=== PATIENT | male | born 1950 | race Caucasian/White ===

== ENCOUNTER 2017-05-18 15:02 | Emergency (ER) | payer BC, MEDICARE ==
[2017-05-18] MEDS ORDERED: Ketorolac INJ* 30 MG/ML 1 ML VIAL IV ONE (15:56)
[2017-05-18] MEDS ORDERED: NS 0.9% 1000 ML* 1,000 ML IV ONE (15:56)
[2017-05-18 16:32] LABS: Hematocrit 44 % (42-52); Hemoglobin 14.7 g/dl (14.0-18.0); Mean Corpuscular HGB Conc 34 g/dl (31-36); Mean Corpuscular Hemoglobin 33 pg (27-31); Mean Corpuscular Volume 97 fL (80-94); Mean Platelet Volume 10 um3 (7.4-10.4); Red Cell Distribution Width 13 % (10.5-15); White Blood Count 8.8 10^3/ul (3.5-10.8)
[2017-05-18 16:48] LABS: Albumin 3.8 g/dL (3.2-5.2); BUN/Creatinine Ratio 15.8 (8-20); C Reactive Protein 5.01 mg/L (< 5.00); Calcium 8.8 mg/dL (8.6-10.3); EGFR African American 78.1 (>60); EGFR Non-African American 60.8 (>60); Globulin 3.2 g/dL (2-4); Potassium 3.9 mmol/L (3.5-5.0); Total Bilirubin 0.6 mg/dL (0.2-1.0)
--- NOTE | 2017-05-18 17:16 | RAD ---
INDICATION: LEFT lower quadrant pain now primarily LEFT flank pain. Multiple episodes of vomiting. COMPARISON: No relevant prior exams available on the [facility] for comparison. TECHNIQUE: Multidetector CT images were obtained from the lung bases to the ischial tuberosities. Evaluation of the viscera is limited without IV contrast. Multiplanar reformation. REPORT: Unremarkable visualized inferior thorax. Decreased density of the liver consistent with fatty infiltration with focal sparing at the gallbladder fossa and violeta hepatis. Distended gallbladder without CT abnormality. Negative for biliary dilatation. Unremarkable unenhanced pancreas and spleen. Negative for CT abnormality of the unopacified upper GI, small bowel, or appendix. Moderate colonic diverticulosis primarily at the sigmoid colon without findings of diverticulitis. Negative for ascites, free air, or hernias. Normal adrenal glands. Negative for RIGHT urolithiasis or hydronephrosis. Small water density cortical cyst at the midpole the RIGHT kidney. Unremarkable RIGHT ureter. 6 mm calyceal stone posterior midpole LEFT kidney. Negative for LEFT hydronephrosis. 1.5 cm cortical cyst mid to upper pole LEFT kidney. Unremarkable nondilated LEFT ureter and partially distended urinary bladder. Coarse calcifications at the prostate. Symmetric seminal vesicles. Negative for lymphadenopathy. Mild calcific plaque of normal diameter abdominal aorta and iliac arteries. Physiologic distention of the IVC. Polyarticular degenerative arthropathy. LEFT hemilumbarization of S1. 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 Degenerative spondylosis and posterior element osteoarthritis results in moderately severe L3-L4 and L4-L5 central canal stenosis. Less prominent stenosis at L5-S1. Degenerative spondylosis and facet joint osteoarthritis results in multilevel foraminal stenosis. IMPRESSION: 1. Normal appendix documented. 2. Moderate sigmoid diverticulosis without findings of diverticulitis. 3. Nonobstructing 6 mm calyceal stone posterior midpole LEFT kidney. Negative for hydronephrosis.
[2017-05-18 18:14] LABS: Urine Bacteria Absent (Absent); Urine Bilirubin Negative (Negative); Urine Glucose Negative (Negative); Urine Nitrite Negative (Negative)
[2017-05-18 18:38] VITALS: BP 160/82
--- NOTE | 2017-05-18 18:46 | ED ---
Riri Zhong Alfonso, scribed for Donald Boston MD on 05/18/17 at 1607 . Abdominal Pain/Male - HPI Summary HPI Summary: This patient is a 66 year old M presenting [facility] accompanied by with a chief complaint of LLQ and left flank pain since this morning. The CC is described as sharp with spasms. The patient rates the pain 4/10 in severity. Symptoms aggravated by palpation and alleviated by nothing. The patient reports nausea, vomiting (6 times), and low back pain. Pt reports two drinks of malt liquor and a greasy breakfast. He denies PMHx of renal calculi. He denies any PMHx. PSHx of tonsillectomy. FHx of gallstones in father. - History of Current Complaint Chief Complaint: EDFlankPain Stated Complaint: FLANK PAIN Time Seen by Provider: 05/18/17 15:56 Hx Obtained From: Patient Onset/Duration: Sudden Onset, Lasting Hours - This morning, Still Present Timing: Constant Severity Initially: Moderate Severity Currently: Moderate Pain Intensity: 4 Pain Scale Used: 0-10 Numeric Location: Discrete At: LLQ, Flank - L Character: Sharp, Other: - Spasm Aggravating Factor(s): Other: - palpation Alleviating Factor(s): Nothing Associated Signs And Symptoms: Positive: Other - The patient reports nausea, vomiting (6 times), and lower back pain. - Allergies/Home Medications Allergies/Adverse Reactions: Allergies Allergy/AdvReac Type Severity Reaction Status Date / Time No Known Allergies Allergy Verified 09/28/13 11:48 PMH/Surg Hx/FS Hx/Imm Hx Respiratory History: Reports: Hx Sleep Apnea - current CPAP user. GI History: Reports: Other GI Disorders - Negative renal calculi at 05/18/17 ED visit Musculoskeletal History: Reports: Hx Arthritis - osteo Sensory History: Denies: Hx Deafness Opthamlomology History: Denies: Hx Legally Blind - Surgical History Surgery Procedure, Year, and Place: 1964 tonsils, various dental surgeries ( teeth pulled) Infectious Disease History: No Infectious Disease History: Denies: Traveled Outside the [place] in Last 30 Days - Family History Known Family History: Positive: Other - Gallstones in father - Social History Alcohol Use: Weekly Substance Use Type: Reports: None Hx Tobacco Use: No Smoking Status (MU): Never Smoked Tobacco Review of Systems Positive: Abdominal Pain - LLQ and L flank, Vomiting - x6, Nausea Positive: Other - Positive low back pain All Other Systems Reviewed And Are Negative: Yes Physical Exam - Summary Physical Exam Summary: VITAL SIGNS: Reviewed. GENERAL: Patient is a well-developed and nourished male who is lying comfortable in the stretcher. Patient is not in any acute respiratory distress. HEAD AND FACE: Normocephalic and atraumatic. EYES: PERRLA, EOMI x 2, No injected conjunctiva. EARS: Hearing grossly intact. Ear canals and tympanic membranes are WNL. MOUTH: Oropharynx within normal limits. NECK: Supple, trachea is midline, no adenopathy, no JVD. CHEST: Symmetric, no tenderness at palpation LUNGS: Clear to auscultation bilaterally. No wheezing or crackles. CVS: RRR, S1 and S2 present, no murmurs or gallops appreciated. ABDOMEN: Soft. Left costovertebral angle. No signs of distention. Positive bowel sounds. No rebound no guarding, and no masses palpated. No abdominal bruit or pulsations. EXTREMITIES: FROM in all major joints, no edema, no cyanosis or clubbing. NEURO: Alert and oriented x 3. No acute neurological deficits. Speech is normal. SKIN: Dry and warm Triage Information Reviewed: Yes Vital Signs On Initial Exam: Initial Vitals Temp Pulse Resp BP Pulse Ox 97.9 F 67 20 172/83 971 05/18/17 15:05 05/18/17 15:05 05/18/17 15:05 05/18/17 15:05 05/18/17 15:05 Vital Signs Reviewed: Yes Diagnostics - Vital Signs Vital Signs Temp Pulse Resp BP Pulse Ox 05/18/17 15:58 98.2 F 72 16 164/84 99 05/18/17 15:05 97.9 F 67 20 172/83 971 - Laboratory Lab Results: Lab Results 05/18/17 05/18/17 05/18/17 Range/Units 16:23 16:23 17:45 WBC 8.8 (3.5-10.8) 10^3/ul RBC 4.50 (4.0-5.4) 10^6/ul Hgb 14.7 (14.0-18.0) g/dl Hct 44 (42-52) % MCV 97 H (80-94) fL MCH 33 H (27-31) pg MCHC 34 (31-36) g/dl RDW 13 (10.5-15) % Plt Count 148 L (150-450) 10^3/ul MPV 10 (7.4-10.4) um3 Neut % (Auto) 86.6 H (38-83) % Lymph % (Auto) 5.4 L (25-47) % [place] % (Auto) 6.8 (1-9) % Eos % (Auto) 0.9 (0-6) % Baso % (Auto) 0.3 (0-2) % Absolute Neuts (auto) 7.6 (1.5-7.7) 10^3/ul Absolute Lymphs (auto) 0.5 L (1.0-4.8) 10^3/ul Absolute Monos (auto) 0.6 (0-0.8) 10^3/ul Absolute Eos (auto) 0.1 (0-0.6) 10^3/ul Absolute Basos (auto) 0 (0-0.2) 10^3/ul Absolute Nucleated RBC 0 10^3/ul Nucleated RBC % 0 Sodium 139 (133-145) mmol/L Potassium 3.9 (3.5-5.0) mmol/L Chloride 107 (101-111) mmol/L Carbon Dioxide 24 (22-32) mmol/L Anion Gap 8 (2-11) mmol/L BUN 19 (6-24) mg/dL Creatinine 1.20 H (0.67-1.17) mg/dL Est GFR ( Amer) 78.1 (>60) Est GFR (Non-Af Amer) 60.8 (>60) BUN/Creatinine Ratio 15.8 (8-20) Glucose 104 H (70-100) mg/dL Calcium 8.8 (8.6-10.3) mg/dL Total Bilirubin 0.60 (0.2-1.0) mg/dL AST 17 (13-39) U/L ALT 19 (7-52) U/L Alkaline Phosphatase 78 (34-104) U/L C-Reactive Protein 5.01 H (< 5.00) mg/L Total Protein 7.0 (6.4-8.9) g/dL Albumin 3.8 (3.2-5.2) g/dL Globulin 3.2 (2-4) g/dL Albumin/Globulin Ratio 1.2 (1-3) Lipase 21 (11.0-82.0) U/L Urine Color Yellow Urine Appearance Clear Urine pH 6.0 (5-9) Ur Specific [place] 1.011 (1.010-1.030) Urine Protein Negative (Negative) Urine Ketones Trace H (Negative) Urine Blood 2+ H (Negative) Urine Nitrate Negative (Negative) Urine Bilirubin Negative (Negative) Urine Urobilinogen Negative (Negative) Ur Leukocyte Esterase Negative (Negative) Urine WBC (Auto) Absent (Absent) Urine RBC (Auto) 3+(>10/hpf) H (Absent) Urine Bacteria Absent (Absent) Urine Glucose Negative (Negative) Result Diagrams: 05/18/17 16:23 05/18/17 16:23 Lab Statement: Any lab studies that have been ordered have been reviewed, and results considered in the medical decision making process. - CT A/P CT Interpretation Completed By: Radiologist - 1. Normal appendix documented. 2. Moderate sigmoid diverticulosis without findings of diverticulitis. 3. Nonobstructing 6 mm calyceal stone posterior midpole LEFT kidney. Negative for hydronephrosis. Abdominal Pain Fem Course/Dx - Course Course Of Treatment: This patient is a 66 year old M presenting to [facility] accompanied by with a chief complaint of LLQ and left flank pain since this morning. The CC is described as sharp with spasms. The patient rates the pain 4/10 in severity. Symptoms aggravated by palpation and alleviated by nothing. The patient reports nausea, vomiting (6 times), and low back pain. Pt reports two drinks of malt liquor and a greasy breakfast. He denies PMHx of renal calculi. He denies any PMHx. PSHx of tonsillectomy. FHx of gallstones in father. Assessment/Plan: Test results without any significant abnormalities expect for creatinine of 1.2, glucose of 104, and CRP of 5. CT A/P reveals 1. Normal appendix documented. 2. Moderate sigmoid diverticulosis without findings of diverticulitis. 3. Nonobstructing 6 mm calyceal stone posterior midpole LEFT kidney. Negative for hydronephrosis. In the ED course, initially the patients pain resolved after vomiting and urinating in the waiting room. The patient continues to be asymptomatic. In the ED course the patient was given IV fluids and toradol for the pain. The CT scan shows no obstructing renal calculi therefore he may have passed a stone or the origin of the pain is musculoskeletal. The patient will be discharged home with PCP follow up. He was instructed to return to the ED if he develops any other or worsening symptoms associated with nausea, vomiting, fevers, or chills. Patient is hemodynamically stable and alert and oriented to person, place, and time. - Diagnoses Differential Diagnosis/HQI/PQRI: Bowel Obstruction, Pancreatitis, Renal Colic, Ureteral Stone, Urinary Tract Infection Provider Diagnoses: Back pain, Left flank pain Discharge - Discharge Plan Condition: Stable Disposition: HOME Patient Education Materials: Back Pain (ED), Flank Pain (ED) Referrals: Dharmesh Lomas MD [Primary Care Provider] - 3 Days The documentation as recorded by the Riri castaneda Alfonso accurately reflects the service I personally performed and the decisions made by Darvin salgado Walter, MD.
== END 2017-05-18 18:37 | disposition home or self-care (01) ==
LOC: ED 15:02
DX: R10.32 Left lower quadrant pain (principal); K57.90 Diverticulosis of intestine, part unspecified, without perforation or abscess without bleeding; R11.2 Nausea with vomiting, unspecified; M54.5 Low back pain
CPT/HCPCS: 36415; 74176; 80053; 81003; 81015; 83690; 85025; 86140; 96374; 99282; J1885

== ENCOUNTER 2017-07-20 04:49 | Emergency (ER) | payer MEDICARE ==
[2017-07-20] MEDS ORDERED: Ondansetron INJ* 2 MG/ML VIAL IV ONE (05:56)
[2017-07-20] MEDS ORDERED: Ketorolac INJ* 30 MG/ML 1 ML VIAL IV ONE (05:56)
[2017-07-20] MEDS ORDERED: NS 0.9% 1000 ML* 1,000 ML IV ONE (05:56)
[2017-07-20] MEDS ORDERED: Morphine INJ* 4 MG/ML 1 ML CARPUJECT IV ONE (05:56)
[2017-07-20 06:32] LABS: Hematocrit 45 % (42-52); Hemoglobin 15.7 g/dl (14.0-18.0); Mean Corpuscular HGB Conc 35 g/dl (31-36); Mean Corpuscular Hemoglobin 33 pg (27-31); Mean Corpuscular Volume 94 fL (80-94); Mean Platelet Volume 9 um3 (7.4-10.4); Red Blood Count 4.82 10^6/ul (4.0-5.4); Red Cell Distribution Width 13 % (10.5-15); White Blood Count 8.2 10^3/ul (3.5-10.8)
[2017-07-20 06:43] LABS: Albumin 4.3 g/dL (3.2-5.2); BUN/Creatinine Ratio 16.9 (8-20); Calcium 9.3 mg/dL (8.6-10.3); EGFR African American 67.6 (>60); EGFR Non-African American 52.6 (>60); Globulin 3.3 g/dL (2-4); Potassium 3.8 mmol/L (3.5-5.0); Total Bilirubin 0.7 mg/dL (0.2-1.0); Total Protein 7.6 g/dL (6.4-8.9)
--- NOTE | 2017-07-20 06:56 | ED ---
Hayley Zhong Rebecca, scribed for Nimo Katzuel on 07/20/17 at 0607 . Back Pain - HPI Summary HPI Summary: Pt is a 66 y/o M who presents to ED c/o L flank pain. Sx began this morning at 0400, waking him up from sleep. Pain is currently severe, ranked 8-9/10. Sx aggravated and alleviated by nothing. Additionally c/o hematuria, N/V. Denies fever, SOB and CP. PMHx L-sided kidney stones. - History of Current Complaint Chief Complaint: EDFlankPain Stated Complaint: FLANK PAIN Time Seen by Provider: 07/20/17 05:48 Hx Obtained From: Patient Onset/Duration: Lasting Hours, Still Present Onset/Duration: Still Present Back Pain Location: Is Discrete @ Severity Currently: Moderate Pain Intensity: 8 Pain Scale Used: 0-10 Numeric Aggravating Symptom(s): Nothing Alleviating Symptom(s): Nothing Associated Signs And Symptoms: Positive: Other - Hematuria, N/V - Allergies/Home Medications Allergies/Adverse Reactions: Allergies Allergy/AdvReac Type Severity Reaction Status Date / Time No Known Allergies Allergy Verified 09/28/13 11:48 PMH/Surg Hx/FS Hx/Imm Hx Respiratory History: Reports: Hx Sleep Apnea - current CPAP user. History: Reports: Hx Kidney Stones Musculoskeletal History: Reports: Hx Arthritis - osteo Sensory History: Denies: Hx Legally Blind, Hx Deafness Opthamlomology History: Denies: Hx Legally Blind - Surgical History Surgery Procedure, Year, and Place: 1964 tonsils, various dental surgeries ( teeth pulled) Infectious Disease History: No Infectious Disease History: Denies: Traveled Outside the [place] in Last 30 Days - Family History Known Family History: Positive: Other - Gallstones in father - Social History Alcohol Use: Weekly Substance Use Type: Reports: None Hx Tobacco Use: No Smoking Status (MU): Never Smoked Tobacco Review of Systems Negative: Fever Negative: Chest Pain Negative: Shortness Of Breath Positive: Abdominal Pain, Nausea All Other Systems Reviewed And Are Negative: Yes Physical Exam - Summary Physical Exam Summary: Appearance: Well appearing, no pain distress Skin: warm, dry, reflects adequate perfusion Head/face: normal Eyes: EOMI, ABI ENT: normal Neck: supple, nontender Respiratory: CTA, breath sounds present Cardiovascular: RRR, pulses symmetrical Abdomen: tenderness in the LLQ and L flank, soft Bowel: present Musculoskeletal: normal, strength/ROM intact Neuro: normal, sensory motor intact, A&Ox3 Triage Information Reviewed: Yes Vital Signs On Initial Exam: Initial Vitals Temp Pulse Resp BP Pulse Ox 97.8 F 83 18 155/87 96 07/20/17 04:56 07/20/17 04:56 07/20/17 04:56 07/20/17 04:56 07/20/17 04:56 Vital Signs Reviewed: Yes Diagnostics - Vital Signs Vital Signs Temp Pulse Resp BP Pulse Ox 07/20/17 04:56 97.8 F 83 18 155/87 96 - Laboratory Result Diagrams: 07/20/17 06:15 07/20/17 06:25 Lab Statement: Any lab studies that have been ordered have been reviewed, and results considered in the medical decision making process. Back Pain Course/Dx - Course Assessment/Plan: Pt is a 66 y/o M who presents to ED c/o L flank pain. Sx began this morning at 0400, waking him up from sleep. Pain is currently severe, ranked 8-9/10. Sx aggravated and alleviated by nothing. Additionally c/o hematuria, N/V. Denies fever, SOB and CP. PMHx L-sided kidney stones. Troponin of 0.00. In the ED course, pt received toradol, morphine, zofran and fluids. Pt will be signed out to Dr. Saeed, pending disposition, awaiting CT Abd/Pel. He understands and agrees. Elevated BP noted. - Diagnoses Provider Diagnoses: Left flank pain Discharge - Discharge Plan Condition: Stable Disposition: OTHER Discharge Disposition Comment: Pt will be signed out, pending disposition, awaiting CT Abd/Pel The documentation as recorded by the Hayley castaneda Rebecca accurately reflects the service I personally performed and the decisions made by , Aaron Katz.
--- NOTE | 2017-07-20 07:31 | RAD ---
CLINICAL HISTORY: Left flank pain COMPARISON: May 18, 2017 TECHNIQUE: Multiple contiguous axial CT scans were obtained of the abdomen and pelvis, without intravenous contrast enhancement. Coronal and sagittal multiplanar reformations are submitted for review. Oral contrast was not administered. FINDINGS: The study is limited by the lack of intravenous contrast. This limits evaluation of the solid organs and vasculature. LUNG BASES: There is minimal dependent atelectasis of the lung bases bilaterally. LIVER: The liver is diffusely low in attenuation compared to the spleen. There are no focal hepatic parenchymal masses. Liver measures 22 cm in long axis. BILE DUCTS: There is no intrahepatic or extrahepatic biliary dilatation. GALLBLADDER: The gallbladder is normal, without pericholecystic inflammatory change. PANCREAS: The pancreas is normal, without mass or ductal dilatation. SPLEEN: Normal in size and appearance. UPPER GI TRACT: Evaluation of the gastrointestinal tract is limited by incomplete gastric distention. The upper GI tract is unremarkable. SMALL BOWEL AND MESENTERY: The small bowel is normal in contour, course, and caliber. There is no obstruction or dilatation. COLON: There are multiple diverticula of the sigmoid colon. There is no pericolonic inflammatory change. ADRENALS: Normal bilaterally. KIDNEYS: There is left-sided nephrolithiasis including a 0.3 cm left UVJ stone and a 1.1 cm left renal pelvic stone. There is mild pelvocaliectasis and hydroureter. BLADDER: As noted above, there is a 0.3 cm left UVJ stone. PELVIC ORGANS: The prostate gland is normal. The seminal vesicles are symmetric. AORTA: The aorta is normal. IVC: Unremarkable LYMPH NODES: There is no lymphadenopathy by size criteria. ABDOMINAL WALL: There is a small fat-containing of focal hernia BONES AND SOFT TISSUES: Degenerative changes are noted of the spine OTHER: None IMPRESSION: 1. LEFT-SIDED NEPHROLITHIASIS INCLUDING A 0.3 CM LEFT UVJ STONE. THERE IS MILD HYDRONEPHROSIS. 2. HEPATOMEGALY WITH FATTY INFILTRATION OF THE LIVER.
[2017-07-20] MEDS ORDERED: oxyCODONE/Acetamin 5/325 MG* TAB PO ONE (09:27)
--- NOTE | 2017-07-20 10:18 | RAD ---
HISTORY: Renal stone, lithotripsy COMPARISONS: CT dated July 20, 2017 VIEWS: Frontal views of the abdomen. FINDINGS: BOWEL: There is a nonspecific bowel gas pattern, with nondilated small bowel gas noted. CALCULI: There is a 0.2 cm calculus of the left hemipelvis corresponding to the UVJ stone noted on CT. There is a 0.6 cm calculus of the left hemiabdomen corresponding to the renal pelvic stone noted on CT. BONES AND SOFT TISSUES: There is a scoliotic curvature of the spine. Degenerative changes are noted. OTHER FINDINGS: The lung bases are clear. There is no subphrenic gas. IMPRESSION: LEFT NEPHROLITHIASIS
[2017-07-20 10:24] LABS: Urine Bacteria Absent (Absent); Urine Bilirubin Negative (Negative); Urine Glucose Negative (Negative); Urine Nitrite Negative (Negative)
[2017-07-20 11:32] VITALS: BP 149/89
--- NOTE | 2017-07-20 12:16 | HP ---
CC: Dr. Lomas * HISTORY AND PHYSICAL: DATE OF PLANNED ADMISSION AND SURGERY: 07/21/17 HISTORY OF PRESENT ILLNESS: Mr. Vogel is a 66-year-old white male who has past history of renal calculus disease and had passed a stone spontaneously about 3 months ago. Yesterday, he noted dark colored urine. He woke up early this morning with acute left renal colic and because of the severity of the pain , he presented to the emergency room. There was no fever, chills, and no change in his voiding. In the emergency room, he had a urinalysis, which was positive for blood. The serum creatinine was 1.3. His white count was normal. He had a noncontrast CT of the abdomen and pelvis, which showed a 1 cm calculus in the left renal pelvis and another 3 mm calculus at the level of the left ureterovesical junction. The patient was given pain medications and he significantly improved. A consultation was obtained. I saw him in the Emergency Room on 06/20/2017. He was doing well and the pain was completely resolved. Because of the size of stone in the left renal pelvis, and the likelihood that the stone will drop and give him another episode of renal colic, patient will be admitted on 07/21/17 for shockwave lithotripsy of the left renal calculus and ureteral stent placement. Will decide if he needs left ureteroscopy and extraction of the 3 mm distal Lt ureteral calculus. PAST MEDICAL HISTORY AND SYSTEM REVIEW: The patient is in excellent health. He is on no chronic medications and denies any allergies to medications. He denies any cardiac or pulmonary diseases or symptoms. He is physically active and has good exercise tolerance. He had a recent physical and lab work by Dr. Lomas and told no abnormalities noted. I had seen him in my office about 2 months ago and he had a normal urological exam. PHYSICAL EXAMINATION GENERAL: Pleasant and healthy looking, morbidly overnight white male, who looks in no pain. VITAL SIGNS: Normal. LUNGS: Clear. HEART: Regular and rhythmic. No murmurs. ABDOMEN: Soft, no masses, no tenderness, and no CVA tenderness. EXTERNAL GENITALIA: Normal. Rectal exam done in my office about 2 months ago showed a slightly enlarged, but non-suspicious prostate. IMPRESSION: 1. Left renal colic due to a 3 mm calculus in the distal left ureter. 2. 1-cm calculus in the left renal pelvis. PLAN: 1. Shockwave lithotripsy of the left renal calculus. 2. Cystoscopy and placement of left ureteral stent. 3. The patient was instructed to strain the urine and if the Lt ureteral calculus still has not passed preoperatively, a left ureteroscopy, possible laser lithotripsy and stone extraction will be performed. The above plans were discussed in detail with the patient and his and all their questions were answered. [id number]/[facility] #: [id number] MTDD
== END 2017-07-20 11:36 | disposition home or self-care (01) ==
LOC: ED 04:49
DX: R10.32 Left lower quadrant pain (principal); R11.2 Nausea with vomiting, unspecified; R31.9 Hematuria, unspecified
CPT/HCPCS: 36415; 74000; 74176; 80053; 81003; 81015; 83690; 84484; 85025; 85610; 85730; 96374; 99284; A9270-GY; J1885; J2270; J2405

== ENCOUNTER 2017-07-21 08:50 | Day surgery (SDC) | payer MEDICARE ==
[2017-07-21] MEDS ORDERED: Famotidine IV* 10 MG/ML 2 ML (20 mg) IV ONE (08:58)
[2017-07-21] MEDS ORDERED: Buffered Lidocaine 0.9% SYRIN* 5 ML/SYR SYRINGE INTRADERM ONE (08:58)
[2017-07-21] MEDS ORDERED: Dexamethasone IV* 4 MG/ML 1 ML (4 MG) IV SLOW PU ONE (08:58)
[2017-07-21] MEDS ORDERED: Buffered Lidocaine 0.9% SYRIN* 5 ML/SYR SYRINGE ONE (09:27)
[2017-07-21] MEDS ORDERED: Dexamethasone IV* 4 MG/ML 1 ML (4 MG) ONE (09:27)
[2017-07-21] MEDS ORDERED: cefTRIAXone(*) 2 GM ADDV.VIAL IVPB ONE ×2 (09:27→09:28)
[2017-07-21] MEDS ORDERED: Famotidine IV* 10 MG/ML 2 ML (20 mg) ONE (09:27)
--- NOTE | 2017-07-21 09:58 | RAD ---
INDICATION: Left-sided nephrolithiasis COMPARISON: July 20, 2017 TECHNIQUE: A single view of the abdomen is submitted. FINDINGS: Bones: There are no acute bony findings. Soft tissues: The soft tissues appear normal. The psoas margins are sharp. Bowel gas pattern: Normal Calcifications: There is a 6 mm calculus projecting over the left renal pelvis/mid pole left kidney. Consultations the minor pelvis which may represent phleboliths. Other: None IMPRESSION: LEFT-SIDED NEPHROLITHIASIS, UNCHANGED.
[2017-07-21] MEDS ORDERED: Midazolam* 1 MG/ML 5 ML VIAL (5 MG) ONE (10:22)
[2017-07-21] MEDS ORDERED: Atracurium* 10 MG/ML 10 ML VIAL ONE (10:22)
[2017-07-21] MEDS ORDERED: Lidocaine 2% PF * 5 ML VIAL ONE (10:22)
[2017-07-21] MEDS ORDERED: fentaNYL* 50 MCG/ML 5 ML VIAL (250 MCG VIAL) ONE (10:22)
[2017-07-21] MEDS ORDERED: Ondansetron INJ* 2 MG/ML VIAL ONE (10:22)
[2017-07-21] MEDS ORDERED: Propofol* 10 MG/ML 20 ML BTL IV PUSH ONE (10:22)
[2017-07-21] MEDS ORDERED: EPHEDrine (Pressors)* 50 MG/ML VIAL ONE (10:41)
[2017-07-21] MEDS ORDERED: fentaNYL* 50 MCG/ML 2 ML VIAL (100 MCG VIAL) IV PRN (10:53)
[2017-07-21] MEDS ORDERED: Ondansetron INJ* 2 MG/ML VIAL IV PRN (10:53)
[2017-07-21] MEDS ORDERED: DiMENhydriNATE IV* 50 MG/ML VIAL IV PUSH PRN (10:53)
[2017-07-21] MEDS ORDERED: oxyCODONE/Acetamin 5/325 MG* TAB PO PRN (10:53)
[2017-07-21] MEDS ORDERED: Iohexol 180 (CONTRAST) 10 ML SDV IV ONE (11:16)
[2017-07-21 13:19] VITALS: BP 139/88
--- NOTE | 2017-07-21 13:36 | OP ---
CC: Dr. Lomas * DATE OF OPERATION/DICTATION: 07/21/2017 - [facility] DATE OF : 1950. SURGEON: Dr. Kory Cleaning. ANESTHESIOLOGIST: Dr. Pablo Villanueva. ANESTHESIA: General. PRE-OP DIAGNOSIS: 1. Left renal calculus (1 cm). 2. Distal left ureteral calculus (3 mm). POST-OP DIAGNOSIS: 1. Left renal calculus (1 cm). 2. Spontaneous passage of left ureteral calculus inside the bladder. OPERATIVE PROCEDURE: 1. Shockwave lithotripsy of left renal calculus (1 cm). 2. Cystoscopy and extraction of 3 mm calculus from bladder. 3. Left retrograde pyelography and placement of left ureteral stent (6 Ghanaian). INDICATION FOR PROCEDURE: Mr. Vogel is a 66-year-old white male who had a spontaneous passage of a 2 mm calculus about two months ago. He presented to the emergency room yesterday with symptoms of left renal colic. Noncontrast CT of the abdomen and pelvis showed a 1 cm calculus in the renal pelvis and a partially obstructing 3 mm calculus in the distal left ureter. The patient was managed conservatively and his pain improved. He was discharged home and he was brought in today for treatment of the left renal calculus. PATHOLOGY: At fluoroscopy, a 1 cm dense radiopaque calculus was noted in the area of the left renal pelvis. No other abnormal calcifications were noted. At cystoscopy, the penile and bulbar urethrae look normal. The prostate urethra measured about 2.5 cm in length and there was early prostate enlargement and obstruction. Examination of the bladder showed some gravel inside the bladder. A 2 to 3 mm calculus was noted in the bladder lumen. Blood was noted from the left ureteral orifice. Upon left retrograde pyelography, there was no extravasation and no significant obstruction. DESCRIPTION OF PROCEDURE: After successful general anesthesia, the patient was placed on the shockwave lithotripsy in the supine position. The left renal calculus was visualized in both the PA and the oblique x-ray views, and the position of the generator and of the patient were adjusted to have the stone in the focus of the shock waves. A total of 2400 shocks were then delivered at the rate of 90 shocks were minute. The proper positioning and fragmentation of the stone were monitored periodically. A two minute break was taken after the initial 300 shocks. At the completion of the treatment, it was not sure whether the stone had broken or not. The patient was then placed in the lithotomy position. He was prepped and draped for a cystoscopy. Cystoscopy was performed. The findings in the prostatic urethra and inside the bladder were noted. The 3 mm calculus seen inside the bladder is consistent with the distal left ureteral calculus that was seen on his CT yesterday. The stone was extracted and sent for stone analysis. It was decided not to perform a left ureteroscopy , but just to place a stent because of the size of the left renal calculus. A flexible tip guidewire was introduced into the left orifice. Retrograde pyelography was performed. A size 6 Ghanaian stent was then placed with a proximal end coiling in the renal pelvis and the distal end coiling inside the bladder. There was good drainage of contrast from the kidney and no extravasation. The bladder was then emptied and the cystoscope was removed. The patient tolerated the procedures well and left the operating room in good condition. PLAN: The plan is to see the patient in the office next week, and a KUB and renal ultrasound will be obtained and will decide on the management of the left renal calculus. [id number]/[id number] #: [id number] MTDD
== END 2017-07-21 13:24 | disposition home or self-care (01) ==
LOC: OR 08:50
PROVIDERS: ATTEND Urology
DX: N20.0 Calculus of kidney (principal); N21.0 Calculus in bladder; N40.1 Benign prostatic hyperplasia with lower urinary tract symptoms; N13.8 Other obstructive and reflux uropathy; Z96.0 Presence of urogenital implants; G47.33 Obstructive sleep apnea (adult) (pediatric)
CPT/HCPCS: 74000; 82365; 88300; C1876; J0696; J1100; J2250; J2405; J2704; J3010

== ENCOUNTER 2018-02-04 06:21 | Emergency (ER) | payer MEDICARE ==
[2018-02-04] MEDS ORDERED: NS 0.9% 1000 ML* 1,000 ML IV ONE (06:54)
[2018-02-04] MEDS ORDERED: Ondansetron INJ* 2 MG/ML VIAL IV ONE (06:54)
[2018-02-04] MEDS ORDERED: Ketorolac INJ* 30 MG/ML 1 ML VIAL IV ONE (06:54)
--- NOTE | 2018-02-04 07:00 | ED ---
Abdominal Pain/Male - HPI Summary HPI Summary: Patient here with acute onset left flank pain at 4:15 this morning -woke him from sleep. He was able to urinate and denies any change in symptoms here as well as hematuria. Denies fevers, chills, diarrhea, constipation. He has a history of urinary tract stones primarily on the right and reports this feels the same. He takes calcium citrate daily as his stones are composed of uric acid. H/o lithotripsy w/ stones in May and August 2017. No know h/o gout. Followed by Dr. Cleaning. - History of Current Complaint Chief Complaint: EDFlankPain Stated Complaint: FLANK PAIN Time Seen by Provider: 02/04/18 06:38 Hx Obtained From: Patient, Family/Rectifying Attendant - Pain Intensity: 6 - Allergies/Home Medications Allergies/Adverse Reactions: Allergies Allergy/AdvReac Type Severity Reaction Status Date / Time No Known Allergies Allergy Verified 07/21/17 09:22 Home Medications: Home Medications Potassium Citrate [Potassium Citrate ER] 15 meq PO BID 02/04/18 [History Confirmed 02/04/18] PMH/Surg Hx/FS Hx/Imm Hx Previously Healthy: Yes Endocrine/Hematology History: Denies: Hx Anticoagulant Therapy, Hx Blood Disorders, Hx Anemia, Hx Unexplained Bleeding, Hx Coagulopothy Respiratory History: Reports: Hx Sleep Apnea - current CPAP user. History: Reports: Hx Kidney Stones - takes calcium citrate Musculoskeletal History: Reports: Hx Arthritis - osteo Sensory History: Denies: Hx Legally Blind, Hx Deafness Opthamlomology History: Denies: Hx Legally Blind - Surgical History Surgery Procedure, Year, and Place: 1964 tonsils, various dental surgeries ( teeth pulled) Infectious Disease History: No Infectious Disease History: Denies: Traveled Outside the [place] in Last 30 Days - Family History Known Family History: Positive: Other - Gallstones in father - Social History Occupation: Employed Full-time - self-employed Lives: With Family Alcohol Use: Weekly Alcohol Amount: couple glasses of wine with dinner Hx Substance Use: No Substance Use Type: Reports: None Hx Tobacco Use: No Smoking Status (MU): Never Smoked Tobacco Review of Systems Constitutional: Negative Cardiovascular: Negative Respiratory: Negative Positive: Abdominal Pain, Vomiting, Nausea. Negative: Diarrhea Positive: see HPI Musculoskeletal: Negative Skin: Negative Neurological: Negative Psychological: Normal All Other Systems Reviewed And Are Negative: Yes Physical Exam Triage Information Reviewed: Yes Vital Signs On Initial Exam: Initial Vitals Temp Pulse Resp BP Pulse Ox 98.0 F 66 16 178/82 99 02/04/18 06:23 02/04/18 06:23 02/04/18 06:23 02/04/18 06:23 02/04/18 06:23 Vital Signs Reviewed: Yes Appearance: Positive: Well-Appearing, Well-Nourished, Pain Distress - mild Skin: Positive: Warm, Skin Color Reflects Adequate Perfusion, Dry Head/Face: Positive: Normal Head/Face Inspection Eyes: Positive: Normal, EOMI, Conjunctiva Clear - anictertic sclera ENT: Positive: Hearing grossly normal, Pharynx normal - mucosa moist Respiratory/Lung Sounds: Positive: Clear to Auscultation, Breath Sounds Present Cardiovascular: Positive: Normal, RRR, S1, S2. Negative: Leg Edema Left, Leg Edema Right Abdomen Description: Positive: No Organomegaly, Soft, CVA Tenderness (L) - mild - feels more in front. Negative: CVA Tenderness (R), Distended, Guarding, Hernia @ Bowel Sounds: Positive: Present Musculoskeletal: Positive: Normal, Strength/ROM Intact Neurological: Positive: Normal, Sensory/Motor Intact, Alert, Oriented to Person Place, Time, CN Intact II-III Psychiatric: Positive: Normal Diagnostics - Vital Signs Vital Signs Temp Pulse Resp BP Pulse Ox 02/04/18 06:46 59 159/86 98 02/04/18 06:23 98.0 F 66 16 178/82 99 - Laboratory Result Diagrams: 02/04/18 07:25 02/04/18 07:25 Lab Statement: Any lab studies that have been ordered have been reviewed, and results considered in the medical decision making process. Abdominal Pain Fem Course/Dx - Course Course Of Treatment: Pt reports pain and nausea have improved with IV fluids, Zofran and Toradol. He does not want anything more for pain. Discussed case with Dr. Cleaning who requests a KUB in order to follow 6 known meter stone in left kidney. Otherwise patient should be able to pass other stones on his own. We'll have him strain urine to confirm passage. We'll keep pain controlled with medicationdiscussed various options with patient and he will take only what he needs for treatment. He will follow-up with Dr. Cleaning Friday by calling today to schedule an appointment. We also discussed if his pain is worse, he may call Dr. Cleaning as this may warrant stent placement. If he develops fevers, chills, return of vomiting despite medication, inability to urinate, he will return to the emergency department. - Diagnoses Provider Diagnoses: Urinary tract stones Discharge - Discharge Plan Condition: Stable Disposition: HOME Prescriptions: HYDROcodone/ACETAMIN 5-325 MG* [[place] 5-325 TAB*] 1 tab PO Q6H PRN #20 tab MDD 4 PRN Reason: Pain Naproxen [Naproxen 500 mg tab] 500 mg PO BID PRN #20 tablet PRN Reason: Pain Ondansetron ODT TAB* [Zofran 4 MG Odt TAB*] 8 mg PO Q8H PRN #15 tab.odt PRN Reason: Nausea Phenazopyridine 200 mg (NF) [Pyridium 200 MG tab *] 200 mg PO TID PRN #6 tab PRN Reason: Pain Tamsulosin CAP* [Flomax CAP*] 0.4 mg PO DAILY #5 cap Patient Education Materials: Kidney Stones (ED), How to Strain Your Urine (ED) Referrals: Kory Cleaning MD [Medical Doctor] - Additional Instructions: You appear to have multiple kidney stones. 1 is in your Left ureter (3mm) but should pass on its own. Others are in your bladder and should pass soon. Additionally, you have a 6mm stone in your Left kidney but does not appear to be causing any issues. Please strain urine with every void to ensure passing. You may take any or all of the following medications to aid in passing your stones. These have been sent to your pharmacy. Zofran: nausea Pyridium: numbs the urinary tract - may turn urine orange - no drowsiness Naproxen: pain - take with food Flomax: helps stone pass [place]: pain - may cause drowsiness - do not operate machinery while taking Follow-up with Dr. Cleaning Friday - call today to schedule an appointment. *If in the meantime, you cannot control your pain with medications, call Dr. Cleaning to be seen sooner *If you develop fever, chills, return of vomiting or inability to urinate, return to the ED - Billing Disposition and Condition Condition: STABLE Disposition: HOME
[2018-02-04 07:36] LABS: ABS Basophils 0 10^3/ul (0-0.2); ABS Eosinophils 0.1 10^3/ul (0-0.6); ABS Lymphocytes 0.7 10^3/ul (1.0-4.8); ABS Monocytes 0.5 10^3/ul (0-0.8); ABS Nucleated RBC 0 10^3/ul; Eosinophil % 1.6 % (0-6); Hematocrit 46 % (42-52); Hemoglobin 15.7 g/dl (14.0-18.0); Lymphocyte % 9.2 % (25-47); Mean Corpuscular HGB Conc 34 g/dl (31-36); Mean Corpuscular Hemoglobin 32 pg (27-31); Mean Corpuscular Volume 95 fL (80-94); Mean Platelet Volume 9.4 um3 (7.4-10.4); Nucleated Red Blood Cells % 0.1; Platelet Count 184 10^3/ul (150-450); Red Blood Count 4.86 10^6/ul (4.0-5.4); Red Cell Distribution Width 13 % (10.5-15); White Blood Count 7.4 10^3/ul (3.5-10.8)
[2018-02-04 07:54] LABS: EGFR Non-African American 64.9 (>60)
--- NOTE | 2018-02-04 08:04 | RAD ---
INDICATION: Left flank and groin pain. COMPARISON: Comparison is made with a prior CT of the abdomen and pelvis from July 20, 2017. TECHNIQUE: A CT scan of the abdomen and pelvis was performed without intravenous or oral contrast. Contiguous axial sections were obtained from the lung bases through the symphysis pubis. Images were reconstructed in the coronal and sagittal planes. FINDINGS: There is minimal dependent atelectasis at the right lung base. The lung bases are otherwise clear. No pleural effusion is present. The liver and spleen are mildly enlarged. The liver is decreased in attenuation consistent with fatty infiltration. There is focal sparing adjacent to the gallbladder. No calcified gallstones are seen. The pancreas appears to be within normal limits. The adrenal glands are normal in size. There are bilateral fluid density lesions within the kidneys most consistent with cysts on this noncontrast study. There are several small left renal calculi measuring up to 6 mm in size. There is mild enlargement of the left kidney and perinephric stranding. There is dilatation of the left renal calyces, pelvis to the level of a calculus in the proximal left ureter just beyond the ureteropelvic junction. The calculus measures 3 mm in size. In addition there are several small 2 to 3 mm calculi noted dependently within the urinary bladder. The prostate gland appears heterogeneous and mildly enlarged with internal calcification measuring 5.4 cm in diameter. The aorta is normal in caliber with mild calcific plaque present. No significant enlarged retroperitoneal lymph nodes are seen. The stomach, small and large bowel appear nondistended. The appendix is within normal limits. There is mild descending and sigmoid diverticulosis without evidence for diverticulitis. There is a small periumbilical hernia containing fat. No free intraperitoneal air or fluid is seen. No significant focal osseous abnormality is seen. IMPRESSION: 1. THERE IS A 3 MM CALCULUS IN THE PROXIMAL LEFT URETER CAUSING MODERATE HYDRONEPHROSIS. THERE ARE SEVERAL ADDITIONAL LEFT RENAL CALCULI AND SMALL CALCULI WITHIN THE URINARY BLADDER. 2. MILD HEPATOSPLENOMEGALY AND HEPATIC STEATOSIS.
[2018-02-04 08:27] LABS: Urine Appearance Cloudy; Urine Blood 3+ (Negative); Urine Color Amber; Urine Ketones Negative (Negative); Urine Protein 2+(100 mg/dL) (Negative); Urine Specific Gravity 1.019 (1.010-1.030); Urine Urobilinogen Negative (Negative)
--- NOTE | 2018-02-04 09:30 | RAD ---
HISTORY: Left nephrolithiasis COMPARISONS: CT dated February 04, 2019 VIEWS: Frontal views of the abdomen. FINDINGS: BOWEL: There is a nonspecific bowel gas pattern, with nondilated small bowel gas noted. CALCULI: There are calculi overlying the left renal parenchymal shadow corresponding to the stones noted on CT. The ureteral fractures noted on CT is not well visualized on the current examination. BONES AND SOFT TISSUES: There is a scoliotic curvature of the spine. Degenerative changes are noted. OTHER FINDINGS: The lung bases are clear. There is no subphrenic gas. IMPRESSION: LEFT NEPHROLITHIASIS
[2018-02-04 09:42] VITALS: BP 127/69
== END 2018-02-04 09:40 | disposition home or self-care (01) ==
LOC: ED 06:21
DX: N13.2 Hydronephrosis with renal and ureteral calculous obstruction (principal); Z87.442 Personal history of urinary calculi; R16.2 Hepatomegaly with splenomegaly, not elsewhere classified; K76.0 Fatty (change of) liver, not elsewhere classified
CPT/HCPCS: 36415; 74018; 74176; 80053; 81003; 81015; 83605; 83690; 83735; 85025; 86140; 87086; 96361; 96374; 96375; 99283; J1885; J2405

== ENCOUNTER 2018-03-01 12:24 | Emergency (ER) | payer MEDICARE ==
--- NOTE | 2018-03-01 13:32 | RAD ---
CLINICAL HISTORY: Left flank pain, history of stone COMPARISON: February 04, 2015 TECHNIQUE: Multiple contiguous axial CT scans were obtained of the abdomen and pelvis, without intravenous contrast enhancement. Coronal and sagittal multiplanar reformations are submitted for review. Oral contrast was not administered. FINDINGS: The study is limited by the lack of intravenous contrast. This limits evaluation of the solid organs and vasculature. LUNG BASES: The lung bases are clear. LIVER: The liver is diffusely low in attenuation compared to the spleen. The liver is mildly enlarged. BILE DUCTS: There is no intrahepatic or extrahepatic biliary dilatation. GALLBLADDER: The gallbladder is normal, without pericholecystic inflammatory change. PANCREAS: The pancreas is normal, without mass or ductal dilatation. SPLEEN: The spleen is mildly enlarged UPPER GI TRACT: Evaluation of the gastrointestinal tract is limited by incomplete gastric distention. The upper GI tract is unremarkable. SMALL BOWEL AND MESENTERY: The small bowel is normal in contour, course, and caliber. There is no obstruction or dilatation. COLON: The colon is normal in contour, course, caliber. There is no pericolonic inflammatory change. There are scattered diverticula of the distal colon. ADRENALS: Normal bilaterally. KIDNEYS: There are multiple left renal calyceal stones measuring up to 0.7 cm in depth. There is a 0.4 cm calculus of the proximal left ureter. There is mild to moderate pelvocaliectasis on the left with perinephric stranding. This has developed from previous examination. BLADDER: The bladder is incompletely distended but is grossly normal. PELVIC ORGANS: The prostate is diffusely enlarged. The seminal vesicles are symmetric. AORTA: There is calcific atherosclerotic disease of the abdominal aorta and its branches, without aneurysmal dilatation IVC: Unremarkable LYMPH NODES: There is no lymphadenopathy by size criteria. ABDOMINAL WALL: There is no evidence for abdominal wall hernia. BONES AND SOFT TISSUES: Degenerative changes are noted OTHER: None IMPRESSION: AGAIN NOTED IS LEFT-SIDED NEPHROLITHIASIS, INCLUDING A LEFT URETERAL STONE. THERE HAS BEEN INTERVAL DEVELOPMENT OF PERINEPHRIC STRANDING SUGGESTIVE OF FORNICEAL RUPTURE WITH MILD TO MODERATE LEFT SIDED HYDRONEPHROSIS. FATTY INFILTRATION OF LIVER. HEPATOSPLENOMEGALY. ENLARGED PROSTATE
[2018-03-01 14:00] LABS: ABS Basophils 0 10^3/ul (0-0.2); ABS Eosinophils 0.1 10^3/ul (0-0.6); ABS Lymphocytes 0.6 10^3/ul (1.0-4.8); ABS Monocytes 0.9 10^3/ul (0-0.8); ABS Neutrophils 7.8 10^3/ul (1.5-7.7); ABS Nucleated RBC 0 10^3/ul; Hematocrit 46 % (42-52); Hemoglobin 15.9 g/dl (14.0-18.0); Lymphocyte % 6.1 % (25-47); Mean Corpuscular HGB Conc 35 g/dl (31-36); Mean Corpuscular Hemoglobin 33 pg (27-31); Mean Corpuscular Volume 94 fL (80-94); Mean Platelet Volume 9.6 um3 (7.4-10.4); Nucleated Red Blood Cells % 0; Platelet Count 182 10^3/ul (150-450); Red Blood Count 4.87 10^6/ul (4.0-5.4); Red Cell Distribution Width 13 % (10.5-15); White Blood Count 9.4 10^3/ul (3.5-10.8)
[2018-03-01] MEDS ORDERED: NS 0.9% 1000 ML* 1,000 ML IV ONE (14:16)
[2018-03-01] MEDS ORDERED: Ketorolac INJ* 30 MG/ML 1 ML VIAL IV PUSH ONE (14:17)
[2018-03-01 14:19] LABS: EGFR Non-African American 52.9 (>60)
[2018-03-01 17:02] LABS: Urine Appearance Clear; Urine Blood 1+ (Negative); Urine Color Yellow; Urine Ketones 1+ (Negative); Urine Protein Negative (Negative); Urine Specific Gravity 1.019 (1.010-1.030); Urine Urobilinogen Negative (Negative)
--- NOTE | 2018-03-01 17:04 | ED ---
Cindy Zhong Gabriel, scribed for Donald Boston MD on 03/01/18 at 1556 . 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 The patient rates the pain 8/10 in severity. Patient reports n/v. Pt was dx with kidney stone 6 weeks ago that was declared too large to pass by urology. - History of Current Complaint Chief Complaint: EDFlankPain Stated Complaint: VOMITING/FLANK PAIN Time Seen by Provider: 03/01/18 14:10 Hx Obtained From: Patient Onset/Duration: Still Present Onset/Duration: Still Present Severity Initially: Severe Severity Currently: Mild Pain Intensity: 8 Pain Scale Used: 0-10 Numeric Associated Signs And Symptoms: Positive: Other - n/v - Allergies/Home Medications Allergies/Adverse Reactions: Allergies Allergy/AdvReac Type Severity Reaction Status Date / Time No Known Allergies Allergy Verified 07/21/17 09:22 PMH/Surg Hx/FS Hx/Imm Hx Endocrine/Hematology History: Denies: Hx Anticoagulant Therapy, Hx Blood Disorders, Hx Anemia, Hx Unexplained Bleeding Respiratory History: Reports: Hx Sleep Apnea - current CPAP user. GI History: Reports: Other GI Disorders - Negative renal calculi at 05/18/17 ED visit History: Reports: Hx Kidney Stones - takes calcium citrate Musculoskeletal History: Reports: Hx Arthritis - osteo Sensory History: Denies: Hx Legally Blind, Hx Deafness Opthamlomology History: Denies: Hx Legally Blind - Surgical History Surgery Procedure, Year, and Place: 1964 tonsils, various dental surgeries ( teeth pulled) Infectious Disease History: No Infectious Disease History: Denies: Traveled Outside the [place] in Last 30 Days - Family History Known Family History: Positive: Other - Gallstones in father - Social History Alcohol Use: Weekly Alcohol Amount: couple glasses of wine with dinner Hx Substance Use: No Substance Use Type: Reports: None Hx Tobacco Use: No Smoking Status (MU): Never Smoked Tobacco Review of Systems Negative: Fever Positive: Vomiting, Nausea Positive: flank pain All Other Systems Reviewed And Are Negative: Yes Physical Exam - Summary Physical Exam Summary: VITAL SIGNS: Reviewed. GENERAL: Patient is a well-developed and nourished male who is lying comfortable in the stretcher. Patient is not in any acute respiratory distress. HEAD AND FACE: No signs of trauma. No ecchymosis, hematomas or skull depressions. No sinus tenderness. EYES: PERRLA, EOMI x 2, No injected conjunctiva, no nystagmus. EARS: Hearing grossly intact. Ear canals and tympanic membranes are within normal limits. MOUTH: Oropharynx within normal limits. NECK: Supple, trachea is midline, no adenopathy, no JVD, no carotid bruit, no c- spine tenderness, neck with full ROM. CHEST: Symmetric, no tenderness at palpation LUNGS: Clear to auscultation bilaterally. No wheezing or crackles. CVS: Regular rate and rhythm, S1 and S2 present, no murmurs or gallops appreciated. ABDOMEN: Soft, non-tender. No signs of distention. No rebound no guarding, and no masses palpated. Bowel sounds are normal.Left CVA tenderness EXTREMITIES: FROM in all major joints, no edema, no cyanosis or clubbing. NEURO: Alert and oriented x 3. No acute neurological deficits. Speech is normal and follows commands. SKIN: Dry and warm Triage Information Reviewed: Yes Vital Signs On Initial Exam: Initial Vitals Temp Pulse Resp BP Pulse Ox 96.6 F 70 18 180/98 97 03/01/18 12:28 03/01/18 12:28 03/01/18 12:28 03/01/18 12:28 03/01/18 12:28 Vital Signs Reviewed: Yes Diagnostics - Vital Signs Vital Signs Temp Pulse Resp BP Pulse Ox 03/01/18 12:28 96.6 F 70 18 180/98 97 - Laboratory Lab Results: Lab Results 03/01/18 03/01/18 03/01/18 Range/Units 13:42 13:42 13:42 WBC 9.4 (3.5-10.8) 10^3/ul RBC 4.87 (4.0-5.4) 10^6/ul Hgb 15.9 (14.0-18.0) g/dl Hct 46 (42-52) % MCV 94 (80-94) fL MCH 33 H (27-31) pg MCHC 35 (31-36) g/dl RDW 13 (10.5-15) % Plt Count 182 (150-450) 10^3/ul MPV 9.6 (7.4-10.4) um3 Neut % (Auto) 83.0 (38-83) % Lymph % (Auto) 6.1 L (25-47) % [place] % (Auto) 9.7 H (0-7) % Eos % (Auto) 1.0 (0-6) % Baso % (Auto) 0.2 (0-2) % Absolute Neuts (auto) 7.8 H (1.5-7.7) 10^3/ul Absolute Lymphs (auto) 0.6 L (1.0-4.8) 10^3/ul Absolute Monos (auto) 0.9 H (0-0.8) 10^3/ul Absolute Eos (auto) 0.1 (0-0.6) 10^3/ul Absolute Basos (auto) 0 (0-0.2) 10^3/ul Absolute Nucleated RBC 0 10^3/ul Nucleated RBC % 0 Sodium 139 (139-145) mmol/L Potassium 4.5 (3.5-5.0) mmol/L Chloride 105 (101-111) mmol/L Carbon Dioxide 28 (22-32) mmol/L Anion Gap 6 (2-11) mmol/L BUN 22 (6-24) mg/dL Creatinine 1.35 H (0.67-1.17) mg/dL Est GFR ( Amer) 68.0 (>60) Est GFR (Non-Af Amer) 52.9 (>60) BUN/Creatinine Ratio 16.3 (8-20) Glucose 117 H (70-100) mg/dL Lactic Acid 2.1 H* (0.5-2.0) mmol/L Calcium 9.2 (8.6-10.3) mg/dL Total Bilirubin 0.70 (0.2-1.0) mg/dL AST 17 (13-39) U/L ALT 21 (7-52) U/L Alkaline Phosphatase 76 (34-104) U/L C-React Prot High Sens 3.44 mg/L Total Protein 7.2 (6.4-8.9) g/dL Albumin 4.1 (3.2-5.2) g/dL Globulin 3.1 (2-4) g/dL Albumin/Globulin Ratio 1.3 (1-3) Result Diagrams: 03/01/18 13:42 03/01/18 13:42 Lab Statement: Any lab studies that have been ordered have been reviewed, and results considered in the medical decision making process. - CT CT ABD/pelvis CT Interpretation Completed By: Radiologist - AGAIN NOTED IS LEFT-SIDED NEPHROLITHIASIS, INCLUDING A LEFT URETERAL STONE. THERE HAS BEEN INTERVAL DEVELOPMENT OF PERINEPHRIC STRANDING SUGGESTIVE OF FORNICEAL RUPTURE WITH MILD TO MODERATE LEFT SIDED HYDRONEPHROSIS. FATTY INFILTRATION OF LIVER. HEPATOSPLENOMEGALY. ENLARGED PROSTATE ED physician has reviewed this radiology report. Re-Evaluation - Re-Evaluation First Eval Re-Evaluation Time: 16:51 Change: Improved Comment: Pt reports no pain. Back Pain Course/Dx - Course Assessment/Plan: Patient is a 67-year-old male who presents to the emergency room with left-sided flank pain. The patient reports that he has history of kidney stones and he feels that he has another kidney stone. Test results without any significant normality except for creatinine 1.35 and glucose of 117 that because it is 2.1. Abdominal pelvic CT was ordered before I saw the patient. Abdominopelvic CT shows that the patient has a kidney stone of 0.7 cm and the ureter stone of 0.4 cm. I discussed the findings and physical the patient asked the to discharge home with follow-up with Dr. Hurtado from urology. Patient will be discharged home with a prescription for Vicodin. I discussed all the findings and test results with the patient. Patient was instructed to return to the emergency room immediately if any of the symptoms return or worsens. Plan of care was discussed with the patient and understands and agrees. All questions were answered at patient satisfaction. There were no further complaints or concerns. Lung exam before discharge: CTA B/L. Good air exchange. No wheezing or crackles heard. CVS: S1 and S2 present. No murmurs appreciated. Patient is alert and oriented x 3. Patient is hemodynamically stable. Patient will be discharged home with follow up PCP in the next 2-3 days - Diagnoses Differential Diagnosis/HQI/PQRI: Positive: Herniated Disc, Renal Colic, Strain, Sprain Provider Diagnoses: Renal colic, Renal lithiasis Discharge - Sign-Out/Discharge Documenting (check all that apply): Discharge/Admit/Transfer - Discharge Plan Condition: Stable Disposition: HOME Referrals: Dharmesh Lomas MD [Primary Care Provider] - 3 Days Additional Instructions: RETURN TO THE EMERGENCY DEPARTMENT FOR CHANGING OR WORSENING SYMPTOMS - Billing Disposition and Condition Condition: STABLE Disposition: HOME The documentation as recorded by the Cindy castaneda Gabriel accurately reflects the service I personally performed and the decisions made by me, Donald Boston MD.
[2018-03-01 17:46] VITALS: BP 146/84
== END 2018-03-01 17:45 | disposition home or self-care (01) ==
LOC: ED 12:24
DX: N20.0 Calculus of kidney (principal); G47.30 Sleep apnea, unspecified; M19.90 Unspecified osteoarthritis, unspecified site
CPT/HCPCS: 36415; 74176; 80053; 81003; 81015; 83605; 85025; 86141; 87086; 96360; 96374; 99283; J1885

== ENCOUNTER 2018-03-16 09:56 | Day surgery (SDC) | payer MEDICARE ==
--- NOTE | 2018-03-03 22:37 | HP ---
CC: Dr. Lomas * HISTORY AND PHYSICAL: DATE OF PLANNED ADMISSION AND SURGERY: 03/16/18 HISTORY OF PRESENT ILLNESS: Mr. Vogel is a 67-year-old white male, who is admitted with a left renal calculi for Shockwave lithotripsy, and possible cystoscopy, and left ureteral stent placement. Mr. Vogel is a known stone former and had required a shockwave lithotripsy of a left renal calculus in July 2017. The stone analysis at that time showed it to be 80% uric acid in composition. He has been maintained on potassium citrate 15 mEq 3 times per day. He had residual left renal calculi after the shockwave lithotripsy. The patient was doing fine until about 4 weeks ago when he had symptoms of left renal colic. He went to the emergency room where he had a noncontrast CT of the abdomen and pelvis, which showed a 3 to 4 mm calculus in the proximal left ureter. He was managed conservatively with pain medications. He did pass several stone fragments afterwards about 3 mm each. He was doing fine until when he presented to the emergency room with recurrent episodes of renal colic. He has another CT, which showed moderate left hydronephrosis, nonobstructing calculi in the lower pole calyx of the left kidney measuring about 7 mm in size. There was a 4 mm calculus in the proximal left ureter associated with some stranding around the left kidney suggestive of extravasation. The calculus ultimately passed spontaneously. He is now admitted for shockwave lithotripsy of the residual Lt renal calculi, and possible Lt ureteral stent placement. PAST MEDICAL HISTORY AND SYSTEM REVIEW: He is in excellent health. He denies any cardiac or pulmonary diseases or symptoms. MEDICATIONS: He is on no other chronic medications. ALLERGIES: Denies any allergies to medications. PHYSICAL EXAMINATION GENERAL: Moderately overweight, otherwise healthy looking white male, who looks in moderate discomfort. VITAL SIGNS: Blood pressure 140/70, pulse of 70, temperature 97. LUNGS: Clear. HEART: Regular and rhythmic. No murmurs. ABDOMEN: He has left CVA tenderness. Rest of the abdominal exam is normal. LABORATORY DATA: His urinalysis in the office shows trace blood and trace protein, negative otherwise. IMPRESSION: 1. Non-obstructing 7 mm calculi in the lower pole calyx of the left kidney. Although they are uric acid in composition, they are radio-opaque (indicating partial content of Calcium) and visualized on KUB, making him a candidate for SWL. PLAN: Shockwave lithotripsy of left renal calculi and possible left ureteral stent placement. I discussed the above plans with the patient. All his questions were answered. [id number]/[facility] #: [id number] FIDELINA
[~2018-03-16 09:56] MED LIST: Acetaminophen TAB* 325 MG PO PRN; Buffered Lidocaine 0.9% SYRIN* 5 ML/SYR SYRINGE INTRADERM ONE; DiMENhydriNATE IV* 50 MG/ML VIAL IV PUSH PRN; HYDROcodone/ACETAMIN 5-325 MG* 1 TAB PO PRN; Levalbuterol 0.63MG/3ML NEB* UNIT OF USE INH PRN; Naloxone* 0.4 MG/ML 1 ML VIAL IV PRN; Ondansetron ODT TAB* 4 MG PO PRN; PROCHLORPERAZINE INJ 5 MG/ML 2 ML VIAL IV PRN; fentaNYL* 50 MCG/ML 2 ML VIAL (100 MCG VIAL) IV PRN
[2018-03-16] MEDS ORDERED: cefTRIAXone(*) 2 GM ADDV.VIAL IVPB ONE (10:24)
[2018-03-16] MEDS ORDERED: Midazolam* 1 MG/ML 2 ML VIAL (2 MG) ONE ×2 (11:19→12:15)
[2018-03-16] MEDS ORDERED: fentaNYL* 50 MCG/ML 2 ML VIAL (100 MCG VIAL) ONE (11:19)
[2018-03-16] MEDS ORDERED: Lidocaine 2% PF * 5 ML VIAL ONE (12:15)
[2018-03-16] MEDS ORDERED: Propofol* 10 MG/ML 20 ML BTL IV PUSH ONE ×2 (12:19→12:29)
[2018-03-16] MEDS ORDERED: Dexamethasone IV* 4 MG/ML 1 ML (4 MG) ONE ×2 (12:19→12:38)
[2018-03-16] MEDS ORDERED: Famotidine IV* 10 MG/ML 2 ML (20 mg) ONE (12:19)
[2018-03-16 14:39] VITALS: BP 136/86
--- NOTE | 2018-03-16 16:06 | RAD ---
Indication: LEFT side shock wave lithotripsy. Comparison: March 01, 2018 Technique: Supine view of the abdomen. REPORT AND IMPRESSION: 0.6 cm stone visualized at the lower pole of the LEFT kidney. No definitive stone visualized along the expected course of the LEFT ureter. No RIGHT side urolithiasis evident. Pelvic phleboliths noted. Unremarkable bowel gas pattern and soft tissue contours.
--- NOTE | 2018-03-17 10:09 | OP ---
OPERATIVE REPORT: DATE OF OPERATION: 03/16/18 DATE OF : 52 SURGEON: Kory Cleaning MD ANESTHESIOLOGIST: Valentín Mejia MD ANESTHESIA: General. PRE-OP DIAGNOSIS: Left renal calculi. POST-OP DIAGNOSIS: Left renal calculi. OPERATIVE PROCEDURE: Shock wave lithotripsy of left renal calculi. INDICATIONS: Mr. Vogel is a 67-year-old white male, known to have left renal calculi. He had a recent episode of left renal colic and he passed a 4- mm left ureteral calculus. CT showed 2 calculi in the lower pole calyx of the left kidney, adjacent to each other, each measuring about 6 in size. KUB showed one 6- to 7-mm calcification in the lower pole calyx of the left kidney. Because of the above history and finding, the size of the stones, the above procedure was advised and accepted. PATHOLOGY AT FLUOROSCOPY: A 7-mm calcification was noted in the lower pole calyx of the left kidney. The other calculus seen on the CT was not seen on fluoroscopy. DESCRIPTION OF PROCEDURE: After successful general anesthesia, the patient was placed in the supine position on the shock wave lithotripsy table. The calculus in the lower pole calyx of the left kidney was visualized in both the PA and the oblique views and the position of the generator and of the table were adjusted to have the stone in the focus of the shock waves. A total of 2,200 shocks were then delivered at a rate of 60 shocks per minute. The proper positioning and fragmentation of the stone were monitored periodically. The focus of the shock waves was moved slightly superiorly and laterally to the visualized calculus to try to catch the other stone seen on the CT scan. At the completion of the procedure, there seemed to be very good fragmentation of the visualized stone. The patient tolerated the procedure well and left the operating room in good condition. [id number] #: [id number] [facility]
== END 2018-03-16 15:00 | disposition home or self-care (01) ==
LOC: OR 09:56
PROVIDERS: ATTEND Urology
DX: N20.0 Calculus of kidney (principal); Z87.442 Personal history of urinary calculi; G47.33 Obstructive sleep apnea (adult) (pediatric)
CPT/HCPCS: 74018; J0696; J1100; J2250; J2704; J3010